=== PATIENT | female | born 1950 | race Caucasian/White ===

== ENCOUNTER 2016-06-22 10:41 | Emergency (ER) | payer OTHER ==
[2016-06-22 11:12] VITALS: BP 149/76; PULSE 78; RESP 18; TEMP 98; O2SAT 97
--- NOTE | 2016-06-22 11:37 | UCPHY ---
H & P Patient Type: Established Chief Complaint Nursing Narrative: fell marcyur walking on side walk- hit head - no loc- c/o mild RAMÍREZ since Wednesday Time Seen by Provider: 06/22/16 11:30 HPI/ROS: CHIEF COMPLAINT: Headache HISTORY OF PRESENT ILLNESS: The patient is a 66-year-old female who comes to the Urgent Care complaining of a persistent headache for the last 5 days. 5 days ago she slipped on ice and fell and hit the back of her head. No hematoma laceration. No neck pain. No loss of consciousness. No vomiting. No seizures. She is concerned however because of the persistent headache about possible head injury versus concussion. Her headache does resolve with Tylenol but then returns. She spoke with her regular physician who recommended she come to get a CT scan. No weakness or numbness. No difficulty ambulating. REVIEW OF SYSTEMS: Constitutional: denies: chills, fever, recent illness, recent injury EENTM: denies: blurred vision, double vision, nose congestion Respiratory: denies: cough, shortness of breath Cardiac: denies: chest pain, irregular heart rate, lightheadedness, palpitations Gastrointestinal/Abdominal: denies: abdominal pain, diarrhea, nausea, vomiting, blood streaked stools Genitourinary: denies: dysuria, frequency, hematuria, pain Musculoskeletal: denies: joint pain, muscle pain Skin: denies: lesions, rash, jaundice, bruising Neurological: See HPI denies: numbness, paresthesia, tingling, dizziness, weakness Hematologic/Lymphatic: denies: blood clots, easy bleeding, easy bruising Immunologic/allergic: denies: HIV/AIDS, transplant EXAM: GENERAL: Well-appearing, well-nourished and in no acute distress. HEAD: Atraumatic, normocephalic. EYES: Pupils equal round and reactive to light, extraocular movements intact, sclera anicteric, conjunctiva are normal. ENT: TMs normal, nares patent, oropharynx clear without exudates. Moist mucous membranes. NECK: Normal range of motion, supple without lymphadenopathy or JVD. LUNGS: Breath sounds clear to auscultation bilaterally and equal. No wheezes rales or rhonchi. HEART: Regular rate and rhythm without murmurs, rubs or gallops. ABDOMEN: Soft, nontender, normoactive bowel sounds. No guarding, no rebound. No masses appreciated. BACK: No CVA tenderness, no spinal tenderness, step-offs or deformities EXTREMITIES: Normal range of motion, no pitting or edema. No clubbing or cyanosis. NEUROLOGICAL: Cranial nerves II through XII grossly intact. Normal speech, normal gait. 5/5 strength, normal movement in all extremities, normal sensation PSYCH: Normal mood, normal affect. SKIN: Warm, dry, normal turgor, no visible rashes or lesions. Source: Patient - Personal History Current Tetanus Diphtheria and Acellular Pertussis (TDAP): Yes Tetanus Vaccine Date: 2006 - Medical/Surgical History Hx Asthma: Yes Other PMH: Asthma. HTN. Skin CA on left arm, C/S, KNEE SURGERY - Family History Significant Family History: No pertinent family hx - Social History Smoking Status: Never smoked Alcohol Use: None Drug Use: None Constitutional: Initial Vital Signs Temperature (C) 36.6 C 06/22/16 11:05 Heart Rate 78 06/22/16 11:05 Respiratory Rate 18 06/22/16 11:05 Blood Pressure 149/76 H 06/22/16 11:05 O2 Sat (%) 97 06/22/16 11:05 O2 Delivery Mode Room Air Allergies/Adverse Reactions: ENVIRONMENTAL Allergy (Mild, Uncoded 01/16/14 12:27) ITCHY EYES Home Medications: Medication Instructions Recorded Lisinopril 01/16/14 Nasonex 01/16/14 Vitamin D3 (OTC) 01/16/14 AZITHROMYCIN [Z-PACK] 250 mg PO DAILY #4 tab 06/22/16 Simvastatin 06/22/16 Symbicort 160-4.5 Mcg Inh (*) 06/22/16 Medical Decision Making - Diagnostics Imaging: Results: CT scan of the head was obtained. The results of the study are negative for acute injury other than scalp hematoma, right chronic maxillary sinusitis. The study was read by Dr. Rayshawn Villa. I viewed the images myself on the PACS system. ED Course/Re-evaluation: 12:15 p.m. we discussed the CT results. The patient is relieved. She does state that she has had sinus congestion for about 9 days. This may be contributing to her headache. I will start her on azithromycin and have given concussion instructions. Patient is very happy with this and declines further workup or testing. Differential Diagnosis: Partial list of the Differential diagnosis considered include but were not limited to; concussion, sinus infection, intracranial injury, contusion and although unlikely based on the history and physical exam, I also considered neck injury, syncope, arrhythmia, aneurysm. I discussed these differential diagnoses and the plan with the patient as well as the usual and expected course. The patient understands that the diagnosis is provisional and that in medicine we are not always correct and that further workup is often warranted. Usual and customary warnings were given. All of the patient's questions were answered. The patient was instructed to return to the emergency department should the symptoms at all worsen or return, otherwise to followup with the physician as we discussed. - Data Points Medications Given: Discontinued Medications Azithromycin (Zithromax) 500 mg PO EDNOW ONE PRN Reason: Protocol Stop: 06/22/16 12:17 Last Admin: 06/22/16 12:25 Dose: 500 mg Departure - Departure Disposition: Home, Routine, Self-Care Clinical Impression: Concussion Qualifiers: Encounter type: initial encounter Loss of consciousness presence/duration: without LOC Qualifier Code: (S06.0X0A) Concussion without loss of consciousness , initial encounter Sinusitis Qualifiers: Sinusitis location: maxillary Chronicity: subacute Qualifier Code: (J01.00) Acute maxillary sinusitis, unspecified Condition: Fair Instructions: Concussion (ED), Sinusitis (ED) Referrals: Lucina Page [Primary Care Provider] - As per Instructions Prescriptions: AZITHROMYCIN [Z-PACK] 250 mg PO DAILY #4 tab - PQRS PQRS Measurement: 134: Depression screening and followup, PRIME MD-PHQ2 (12 years and older) Over the last 2 weeks, how often have you been bothered by any of the following problems? 1. Feeling down, depressed, or hopeless? 2. Little interest or pleasure in doing things? Patient answered no to both 1 and 2 130: Documentation of medications. Reviewed all patient medications, doses, route and frequency. 226: Do you smoke? No. 47: 65 and older: Advanced care planning. Patient designates surrogate decision maker as spouse . Patient has advanced directive. 51: 18 years old and older with diagnosis of COPD, spirometry performance. Spirometry not performed; equipment not available. 52: 18 years old and older with COPD and symptoms of COPD or FEV1<60% predicted prescribed a B Agonist. Not applicable
--- NOTE | 2016-06-22 12:12 | CT ---
CT Scan of the Head (Without Contrast) Clinical History: 66-year-old female who fell last and ice, hitting the back of her head, wi th some persistent cephalgia. Rule out acute-subacute intracranial abnormality. Technique: Axial unenhanced images were obtained from the vertex through the skull base, reformatted at 5.00 and 1.25 mm increments, and reviewed in bone, brain, and subdural windows. Images were repro cessed in parasagittal and paracoronal planes. Dose reduction techniques were utilized. The DFOV is 2 5.0 cm. Comparison Study: None. Findings: In the right posterior parietal scalp, there is a 2.1 x 1.6 x 0.5 cm hematoma. There is no associated skull fracture. The ventricles and basilar cisterns are normal in size and symmetrical in configuration. There is no midline shift, or other evidence of mass effect. There is no abnormal intr a or extra-axial blood collection, or acute infarction identified. The mastoids are patent. There is subtotal opacification of the right maxillary sinus, with some mild chronic mucosal thickening of the left maxillary sinus and of the ethmoids. The frontal and sphenoid sinuses are patent. There is mini mal atherosclerotic calcification of the left vertebral artery and also involving the cavernous carot id arteries. The craniocervical junction, sella turcica, pineal gland, and the orbits are within norm al limits. Impression: 1. There is no acute abnormality identified on this unenhanced CT evaluation. 2. There is a right posterior parietal scalp hematoma. 3. Maxillary and ethmoid chronic sinusitis. If there is further clinical concern regarding the patient's symptoms, MR imaging is suggested, if no t otherwise contraindicated. Results were conveyed to Dr. Kyle Jennings. A test result has been communicated to a licensed care provider and documented in the [employer] Critical Result system on 06/22/2016 12:08, Message ID [id number].
[2016-06-22] MEDS ORDERED: AZITHROMYCIN 250 MG TAB PO ONE (12:16)
== END 2016-06-22 12:27 | disposition home or self-care (01) ==
LOC: CED 10:41
DX: S06.0X0A Concussion without loss of consciousness, initial encounter (principal); R09.81 Nasal congestion; W00.0XXA Fall on same level due to ice and snow, initial encounter
CPT/HCPCS: 70450-PO; 99215-PO; G0463-PO

== ENCOUNTER → 2016-09-01 | Outpatient (CLI) | payer OTHER | LOC: BRMIMAGING 08:12 | DX: Z12.31 Encounter for screening mammogram for malignant neoplasm of breast (principal) | CPT/HCPCS: G0202 ==

== ENCOUNTER → 2017-08-18 | Outpatient (CLI) | payer OTHER | LOC: BRMIMAGING 13:02 | PROVIDERS: ATTEND Internal Medicine | DX: Z12.31 Encounter for screening mammogram for malignant neoplasm of breast (principal) ==